=== PATIENT | male | born 2000 ===

== ENCOUNTER 2022-12-29 10:06 | Emergency (ER) | payer SELFPAY ==
[2022-12-29] MEDS ORDERED: Ketorolac Tromethamine 30 MG/ML VIAL ONE (10:29)
[2022-12-29] MEDS ORDERED: Boostrix 0.5 ML (Tdap) VIAL (>/=7 yrs of age) ONE (10:52)
== END 2022-12-29 11:15 | disposition home or self-care (01) ==
LOC: ERS 10:06
DX: M25.561 Pain in right knee (principal); Z23 Encounter for immunization
CPT/HCPCS: 90471; 90715; 96372; J1885